=== PATIENT | female | born 1990 | race Two or more races ===

== ENCOUNTER 2016-08-20 04:44 | Emergency (ER) | payer MEDICAID ==
[2016-08-20 04:59] VITALS: RESP 16; TEMP 97.9; O2SAT 97
[2016-08-20] MEDS ORDERED: MAALOX/LIDO/HYOSC GI COCKTAIL 55 ML BOTTLE PO ONE (05:28)
--- NOTE | 2016-08-20 05:32 | EDPHY ---
H & P Stated Complaint: intermittent chest tightness x7h, worse with stretching, SOB Time Seen by Provider: 08/20/16 05:25 HPI/ROS: Chief complaint: Chest pain HPI: 25-year-old female woke from sleep tonight pain in her central chest. Feels like a burning and a pulling. It is worse when she stretches out her arms. Is not positional. Is not exertional. Does not have a history of the same. No nausea or vomiting. Is not short of breath. Is not pleuritic. No fevers or chills. No cough. Does not smoke. No recent travel. No family history of coronary artery disease. At worst it is about a 7/10. She is not taking any medications for this. ROS: 10 point Review of Systems is negative except as noted in the HPI. Past medical history: None Medications: None Allergies: No known drug allergies Social history does not smoke, does not drink alcohol, does not use recreational drugs Physical exam: Gen: Awake, Alert, No Distress HEENT: Ears: Bilateral TMs are normal, no erythema or bulging. External auditory canals are clear. Nose: no rhinorrhea Eyes: PERRLA, EOMI Mouth: Moist mucosa Neck: Supple, no JVD Chest: She has tenderness in bilateral insertions of the pectoralis muscles on the sternum reproducing the presenting complaint, lungs clear to auscultation Heart: S1, S2 normal, no murmur Abd: Soft, non-tender, no guarding Back: no CVA tenderness, no midline tenderness Ext: no edema, non-tender Skin: no rash Neuro: CN II-XII intact, Sensation grossly intact, Strength 5/5 in bilateral upper and lower extremities - Personal History LMP (Females 10-55): Over 28 Days Ago Current Tetanus/Diphtheria Vaccine: Yes Current Tetanus Diphtheria and Acellular Pertussis (TDAP): Yes - Medical/Surgical History Hx Asthma: No Hx Chronic Respiratory Disease: No Hx Diabetes: No Hx Cardiac Disease: No Hx Renal Disease: No Hx Cirrhosis: No Hx Alcoholism: No Hx HIV/AIDS: No Hx Splenectomy or Spleen Trauma: No Other PMH: denies - Social History Smoking Status: Never smoked Constitutional: Initial Vital Signs Temperature (C) 36.6 C 08/20/16 04:53 Heart Rate 76 08/20/16 04:53 Respiratory Rate 16 08/20/16 04:53 Blood Pressure 145/79 H 08/20/16 04:53 O2 Sat (%) 97 08/20/16 04:53 O2 Delivery Mode Room Air Allergies/Adverse Reactions: No Known Allergies Allergy (Verified 08/18/14 18:50) Home Medications: Medication Instructions Recorded NK [No Known Home Meds] 08/20/16 Medical Decision Making - Diagnostics EKG Interpretation: EC: Sinus rhythm with a rate of 60, normal axis, normal intervals, no acute ST or T-wave changes. Impression: Normal ECG ED Course/Re-evaluation: 25-year-old female with no risk factors for coronary disease or PE presenting with reproducible chest wall pain worse with movement and palpation. Symptoms are musculoskeletal in nature. ECG is unremarkable. Will discharge to follow up as an outpatient, return for worsening. Get instructed her to take anti- inflammatories for her pain. - Data Points Medications Given: Discontinued Medications Miscellaneous Medication (Gi Cocktail) 55 ml PO EDNOW ONE Stop: 08/20/16 05:29 Last Admin: 08/20/16 05:40 Dose: 55 ml Departure - Departure Disposition: Home, Routine, Self-Care Clinical Impression: Chest wall pain Condition: Good Instructions: Chest Wall Pain (ED) Additional Instructions: You may alternate ibuprofen and acetaminophen as needed for aches and pains. Follow up with primary care physician on Monday. Return to the emergency department for increasing pain, nausea, vomiting, shortness of breath, or any other concerns. Referrals: Nadia Remy MD [Primary Care Provider] - As per Instructions
--- NOTE | 2016-08-20 05:39 | CPEKG ---
Heart Rate: 60 RR Interval: 1000 P-R Interval: 164 QRSD Interval: 88 QT Interval: 404 QTC Interval: 404 P Guthrie: 33 QRS Guthrie: 64 T Wave Guthrie: 26 EKG Severity - NORMAL ECG - EKG Impression: SINUS RHYTHM Electronically Signed By: Krzysztof Galloway 20-Aug-2016 07:06:14
[2016-08-20 06:20] VITALS: BP 111/74; PULSE 72
== END 2016-08-20 06:20 | disposition home or self-care (01) ==
DX: R07.89 Other chest pain (principal)